=== PATIENT | male | born 1985 | race African-American/Black ===

== ENCOUNTER 2016-06-14 11:27 | Emergency (ER) | payer MEDICAID ==
[~2016-06-14] VITALS: Ht 175.3 cm; Wt 87.0 kg
[2016-06-14] MEDS ORDERED: MAGNESIUM/ALUMINUM HYDROXIDE/SIMETHICONE 30ML UDC PO STA (13:36)
[2016-06-14 14:00] LABS: BASOPHILS % 1.3 % (0.0-2.0); EOSINOPHILS % 3.4 % (0.0-5.0); HEMATOCRIT. 42.4 % (42.0-52.0); HEMOGLOBIN. 14.1 g/dL (14.0-18.0); LYMPHOCYTES % 31.2 % (20.0-50.0); MEAN CORPUSCULAR HGB CONC 33.4 g/dL (31.0-37.0); MEAN CORPUSCULAR VOLUME 86.9 fL (80.0-94.0); MEAN PLATELET VOLUME 7.3 fl (7.4-10.4); MONOCYTES % 9.7 % (2.0-8.0); NEUTROPHILS % 54.4 % (40.0-76.0); PLATELET 310 x1000/uL (130-400); RED BLOOD CELL COUNT 4.87 mill/uL (4.7-6.1); RED CELL DISTRIBUTION WIDTH 12.6 % (11.6-14.6); WHITE BLOOD COUNT 5.7 x1000/uL (4.5-11.0)
[2016-06-14 14:02] LABS: GLUCOSE URINE NEGATIVE (NEGATIVE); KETONES URINE NEGATIVE (NEGATIVE); LEUKOCYTE ESTERASE URINE 2+ (NEGATIVE); NITRITE URINE NEGATIVE (NEGATIVE); OCCULT BLOOD URINE NEGATIVE (NEGATIVE); PH URINE 7.5 (4.5-8.0); PROTEIN URINE NEGATIVE (NEGATIVE); SPECIFIC GRAVITY URINE 1.019 (1.005-1.030); UROBILINOGEN URINE 0.2 E.U./dL (0.2-1.0)
[2016-06-14 14:06] LABS: INR 1.1; PROTHROMBIN TIME 11.9 sec
[2016-06-14 14:10] LABS: CLARITY URINE CLEAR (CLEAR); COLOR URINE YELLOW (YELLOW)
[2016-06-14 14:12] LABS: ALANINE AMINOTRANSFERASE 38 IU/L (13-61); ALBUMIN 4.2 g/dL (3.4-5.0); ANION GAP 13; CALCIUM 9.5 mg/dL (8.5-10.1); CARBON DIOXIDE 32 mEq/L (21-32); CHLORIDE 103 mEq/L (98-107); INDEX HEMOLYSI 1 (1-3); INDEX ICTERIC 1 (1-4); INDEX LIPEMIC 1 (1-3); LIPASE 128 IU/L (73-393); UREA NITROGEN BLOOD 9 mg/dL (7-21); eGFR > 60 mL/min (>60)
[2016-06-14] MEDS ORDERED: CEFTRIAXONE SODIUM 250 MG/VIAL IM ONE (14:30)
[2016-06-14] MEDS ORDERED: AZITHROMYCIN 500 MG TABLET PO ONE (14:30)
[2016-06-14 14:45] LABS: BACTERIA URINE NONE SEEN; SQUAMOUS EPITHELIAL CELL URINE FEW /lpf (RARE/1+); TRICHOMONAS URINE FEW; WBC URINE 25-50 /hpf (0-2)
[2016-06-14 17:08] VITALS: BP 126/88
== END 2016-06-14 17:10 | disposition home or self-care (01) ==
LOC: ER 13:38
DX: A59.03 Trichomonal cystitis and urethritis (principal); J45.909 Unspecified asthma, uncomplicated; Z88.0 Allergy status to penicillin; Z87.891 Personal history of nicotine dependence
CPT/HCPCS: 36415; 80053; 81001; 83690; 85025; 85610; 96372; 99284; J0696; Z7610

== ENCOUNTER 2023-03-03 14:15 | Emergency (ER) | payer MEDICAID ==
[~2023-03-03] VITALS: Ht 180.3 cm; Wt 122.0 kg
[2023-03-03 14:43] VITALS: BP 124/87; O2SAT 100
[2023-03-03] MEDS ORDERED: BACITRACIN ZINC OINT UDPKT TOP ONE (17:15)
[2023-03-03] MEDS ORDERED: TETANUS, DIPHTHERIA, PERTUSSIS VAC/PF 0.5ML (>10YR OLD) IM ONE (17:15)
[2023-03-03] MEDS ORDERED: BO1 TP (17:27)
[2023-03-03] MEDS ORDERED: AMOX1TAB16 MT ×2 (17:28)
[2023-03-03 18:01] VITALS: PULSE 76; RESP 12; TEMP 98.1
== END 2023-03-03 18:02 | disposition home or self-care (01) ==
LOC: ER 14:15
DX: S81.051A Open bite, right knee, initial encounter (principal); J45.909 Unspecified asthma, uncomplicated; Z88.0 Allergy status to penicillin; Z91.018 Allergy to other foods; Z98.890 Other specified postprocedural states; Z91.013 Allergy to seafood; W54.0XXA Bitten by dog, initial encounter; Y93.9 Activity, unspecified; Y92.89 Other specified places as the place of occurrence of the external cause; Y99.8 Other external cause status
CPT/HCPCS: 90471; 90715; 99283